=== PATIENT | female | born 1980 | race Two or more races ===

== ENCOUNTER 2019-01-20 11:49 | Emergency (ER) | payer OTHER ==
[~2019-01-20] VITALS: Ht 167.6 cm; Wt 65.8 kg
--- NOTE | 2019-01-20 12:39 | NUR ---
SEEN AND EXAMINED BY RICHARD JETER
[2019-01-20] MEDS ORDERED: KETOROLAC TROMETHAMINE INJ 30 MG/ML VIAL ONE (12:42)
--- NOTE | 2019-01-20 12:47 | NUR ---
PT BIB SELF C/O R L Q ABDOMINAL PAIN, NOT IN RESPIRATORY DISTRESS, V/S STABLE, KEPT RESTED AND COMFORTABLE, WILL CONTINUE TO MONITOR.
--- NOTE | 2019-01-20 12:50 | NUR ---
URINE SPECIMEN COLLECTED AND SENT TO LAB.
--- NOTE | 2019-01-20 12:52 | NUR ---
IV LINE ESTABLISHED, BLOOD DRAWNED AND SENT TO LAB.
[2019-01-20 12:56] LABS: BASOPHILS % (AUTO) 0.3 % (0.0-2.0); EOSINOPHILS % (AUTO) 1.7 % (0.0-6.0); HEMATOCRIT 39 % (33-45); HEMOGLOBIN 13.4 g/dL (11.5-14.8); LYMPHOCYTES # (AUTO) 2.5 /CMM (0.8-4.8); LYMPHOCYTES % (AUTO) 37.2 % (20.0-44.0); MEAN CORPUSCULAR HGB CONC 34 g/dl (31.0-36.0); MEAN CORPUSCULAR VOLUME 93 fL (82-100); MONOCYTES # (AUTO) 0.5 /CMM (0.1-1.30); NEUTROPHILS # (AUTO) 3.6 /CMM (1.8-8.9); NEUTROPHILS % (AUTO) 53.8 % (43.0-81.0); PLATELET COUNT (AUTO) 270 /CMM (150-450); WHITE BLOOD COUNT (AUTO) 6.7 K/uL (4.3-11.0)
[2019-01-20] MEDS: KETOROLAC TROMETHAMINE INJ 30 MG/ML VIAL IV ONE ×2 (12:57→13:12)
[2019-01-20] MEDS: IV NS 0.9% 1,000 ML BAG IV ONE ×2 (12:57→13:11)
[2019-01-20 13:04] LABS: CALCIUM, SERUM 8.7 mg/dL (8.5-10.1); CREATININE 0.6 mg/dL (0.6-1.3)
[2019-01-20 13:17] LABS: ALBUMIN 3.8 g/dL (3.4-5.0); BILIRUBIN,DIRECT 0.1 mg/dL (0.0-0.2); BILIRUBIN,TOTAL 0.3 mg/dL (0.2-1.0); TOTAL PROTEIN, SERUM 7.2 g/dL (6.4-8.2)
--- NOTE | 2019-01-20 13:34 | NUR ---
PT IS WHEELED TO CT SCAN VIA [facility].
--- NOTE | 2019-01-20 15:01 | NUR ---
IV removed. Catheter intact and site benign. Pressure and 4x4 applied to site. No bleeding noted. Patient discharged to home in stable condition. Written and verbal after care instructions given. Patient verbalizes understanding of instruction.
[2019-01-20 15:03] VITALS: BP 122/71
== END 2019-01-20 15:05 | disposition home or self-care (01) ==
LOC: ER 11:49
DX: R10.31 Right lower quadrant pain (principal); Z90.49 Acquired absence of other specified parts of digestive tract
CPT/HCPCS: 36415; 74176; 80048; 80076; 83690; 84703; 85025; 96374; 99284; J1885; J7030

== ENCOUNTER 2019-05-13 09:10 | Emergency (ER) | payer OTHER ==
[~2019-05-13] VITALS: Ht 162.6 cm; Wt 72.6 kg
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
--- NOTE | 2019-05-13 09:32 | NUR ---
DR MCLAUGHLIN AT BEDSIDE
--- NOTE | 2019-05-13 09:49 | NUR ---
URINE SAMPLE SENT TO LAB
[2019-05-13] MEDS ORDERED: ACETAMINOPHEN ES 500 MG TABLET ONE (09:59)
[2019-05-13] MEDS ORDERED: ACETAMINOPHEN ES 500 MG TABLET PO ONE (10:00)
--- NOTE | 2019-05-13 10:33 | NUR ---
Patient discharged to home in stable condition. Written and verbal after care instructions given. Patient verbalizes understanding of instruction.
[2019-05-13 10:34] VITALS: BP 130/78
== END 2019-05-13 10:35 | disposition home or self-care (01) ==
LOC: ER 09:10
DX: S70.01XA Contusion of right hip, initial encounter (principal); Z90.49 Acquired absence of other specified parts of digestive tract; X58.XXXA Exposure to other specified factors, initial encounter; Y93.89 Activity, other specified; Y92.89 Other specified places as the place of occurrence of the external cause; Y99.8 Other external cause status
CPT/HCPCS: 73502; 84703-TC

== ENCOUNTER 2021-07-14 13:40 | Emergency (ER) | payer OTHER ==
[~2021-07-14] VITALS: Ht 162.6 cm; Wt 72.6 kg
[2021-07-14 13:50] VITALS: BP 130/78
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
--- NOTE | 2021-07-14 15:36 | NUR ---
Patient discharged to home in stable condition. Written and verbal after care instructions given. Patient verbalizes understanding of instruction.
== END 2021-07-14 15:36 | disposition home or self-care (01) ==
LOC: ER 13:47
DX: S06.0X0A Concussion without loss of consciousness, initial encounter (principal); S00.83XA Contusion of other part of head, initial encounter; Z90.49 Acquired absence of other specified parts of digestive tract; Z60.2 Problems related to living alone; V29.88XA Motorcycle rider (driver) (passenger) injured in other specified transport accidents, initial encounter; Y93.89 Activity, other specified; Y92.89 Other specified places as the place of occurrence of the external cause; Y99.8 Other external cause status
CPT/HCPCS: 70450-TC; 70486-TC

== ENCOUNTER 2022-01-11 03:59 | Emergency (ER) | payer BC, OTHER ==
[~2022-01-11] VITALS: Ht 162.6 cm; Wt 72.6 kg
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
[2022-01-11 04:06] VITALS: BP 133/79
[2022-01-11] MEDS ORDERED: diphenhydrAMINE HCL 50 MG CAPSULE ONE (04:07)
[2022-01-11] MEDS ORDERED: predniSONE 20 MG TABLET ONE (04:08)
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
[2022-01-11] MEDS ORDERED: DIPHENHYDRAMINE HCL 12.5 MG/5 ML UDC PO ONE (04:30)
[2022-01-11] MEDS ORDERED: predniSONE 50 MG TABLET PO ONE (04:30)
[2022-01-11] MEDS ORDERED: PRED20TA GT (04:59)
[2022-01-11] MEDS ORDERED: EPIN0.3P3 IM (04:59)
== END 2022-01-11 05:33 | disposition home or self-care (01) ==
LOC: ER 04:11
DX: L50.9 Urticaria, unspecified (principal); Z90.49 Acquired absence of other specified parts of digestive tract; Z60.2 Problems related to living alone
CPT/HCPCS: 99283; Q0163 ×2; J7512

== ENCOUNTER → 2023-10-02 | Emergency (ER) | payer BC, OTHER ==
[~2023-10-02] VITALS: Ht 162.6 cm; Wt 70.3 kg
[~2023-10-02] MED LIST: CYCL10TA9 PO; CYCLOBENZAPRINE 10 MG TABLET ONE; EPIN0.3P3 IM; KETO10TA2 PO; KETOROLAC TROMETHAMINE 15 MG/ML VIAL ONE; PRED20TA GT
[2023-10-02] MEDS: KETOROLAC TROMETHAMINE 15 MG/ML VIAL IM ONE (13:08)
[2023-10-02] MEDS: CYCLOBENZAPRINE 10 MG TABLET PO ONE (13:08)
[2023-10-02 14:26] VITALS: BP 129/80; TEMP 98.2; O2SAT 98
== END | disposition home or self-care (01) ==
LOC: ER 12:33
DX: M25.552 Pain in left hip (principal); Z60.2 Problems related to living alone
CPT/HCPCS: 99284; 96372; 73503; 72170; J1885; 73502